=== PATIENT | female | born 1975 | race Caucasian/White ===

== ENCOUNTER 2019-08-25 07:12 | Emergency (ER) | payer BC, OTHER ==
[~2019-08-25] VITALS: Ht 165.1 cm; Wt 59.0 kg
[2019-08-25] MEDS ORDERED: TDAP DIPH,PERTUSS,TET VAC/PF 0.5 ML DISP.SYRIN IM ONE ×2 (07:45→07:50)
--- NOTE | 2019-08-25 07:59 | NUR ---
PT WAS EVALUATED BY DR SANCHEZ. PT WAS D/C'd TO HOME. D/C INSTRUCTIONS GIVEN TO THE PT.
[2019-08-25 08:00] VITALS: BP 129/77
== END 2019-08-25 08:05 | disposition home or self-care (01) ==
LOC: ER 07:16
DX: S61.012A Laceration without foreign body of left thumb without damage to nail, initial encounter (principal); Z88.0 Allergy status to penicillin; Z88.2 Allergy status to sulfonamides; Z88.1 Allergy status to other antibiotic agents; W26.0XXA Contact with knife, initial encounter; Y93.89 Activity, other specified; Y92.89 Other specified places as the place of occurrence of the external cause; Y99.8 Other external cause status
CPT/HCPCS: 90715; A4217; A4663